=== PATIENT | female | born 1990 | race Caucasian/White ===

== ENCOUNTER 2017-07-23 11:56 | Outpatient (CLI) | payer MEDICAID ==
[~2017-07-23] VITALS: Ht 157.5 cm; Wt 92.7 kg
[~2017-07-23 11:56] MED LIST: ACET325T33 PO; AMOX500C2 PO; ERYTOPOI BOTH EYES; PREN-29 PO
[2017-07-23 12:31] VITALS: BP 99/57; PULSE 83; RESP 18; Ht 157.5 cm; Wt 92.7 kg
[2017-07-23] MEDS ORDERED: FOLI-49 PO (12:34)
--- NOTE | 2017-07-23 13:12 | RADRPT ---
PROCEDURE: US OB biophysical profile. CLINICAL INDICATION: evaluation, labor TECHNIQUE: Multiple sonographic images of the pelvis were obtained. The images were reviewed on a PACS workstation. COMPARISON: No prior studies are available for comparison. FINDINGS: There is a single viable intrauterine gestation. Cardiac activity is present with 126 beats per min brianne. There is a vertex presentation. The placenta is fundal and left lateral in location. There is no evidence of placental abruption. There is a normal amount of amniotic fluid with an JOSÉ = 10.2 cm. Biophysical profile: movement 2/2 tone 2/2. breathing 2/2 JOSÉ 2/2 Total 05/26 RPTAT: AA . IMPRESSION: Normal biophysical profile. Physician Eyal Date Time Electronically viewed and signed by Physician Eyal on 07/23/2017 13:12 /
[2017-07-23 13:15] LABS: ADD UMIC YES; UR ASCORBIC ACID NEGATIVE (NEGATIVE); UR BACTERIA FEW /HPF (NONE SEEN); UR BILIRUBIN (Dip) NEGATIVE (NEGATIVE); UR BLOOD (Dip) NEGATIVE (NEGATIVE); UR CLARITY CLOUDY (CLEAR); UR COLOR AMBER (YELLOW); UR GLUCOSE (Dip) NEGATIVE (NEGATIVE); UR KETONES (Dip) NEGATIVE (NEGATIVE); UR LEUKOCYTE ESTERASE (Dip) 2+ Leu/ul (NEGATIVE); UR MUCUS MODERATE /HPF (NONE SEEN); UR NITRITE (Dip) NEGATIVE (NEGATIVE); UR RBC 3 /HPF (0-5); UR SQUAMOUS EPITHELIAL CELL MANY /HPF (FEW); UR TOTAL PROTEIN (Dip) 1+ mg/dl (NEGATIVE); UR UROBILINOGEN (Dip) 2+ mg/dL (NEGATIVE)
--- NOTE | 2017-07-23 14:27 | TRIAGE ---
OB Triage Datetime Report Generated by CPN: 07/23/2017 14:27 Datetime: 07/23/2017 13:32 Stage of : OB Triage Datetime: 07/23/2017 13:31 Vaginal Exam Dilatation (cms): 0.0 Effacement (%): 50 Station: -3 Exam By: BJACOBO Datetime: 07/23/2017 13:30 Labor Evaluation Frequency: 0.5-2 Monitor Mode: External Duration (sec)2399: 60-70 Quality: Mild Pattern: Normal: <= 5 Contractions in 10 Minutes Resting Tone [place]: Relaxed Heart Rate FHR Baseline Rate: 130 Monitor Mode: External US FHR Baseline Changes: No Baseline Change Variability: Moderate 6-25 bpm Accelerations: 15X15 Decelerations: Variable Pain Assessment Pain Scale: 3 Pain Presence: Intermittent Pain Type: Contraction Pain Location: Abdomen Datetime: 07/23/2017 12:39 Assessment Type: Triage Maternal Assessment Level of Consciousness: Fully Conscious DTR's/Clonus: DTRs 2+; No Clonus Headache: Denies Blurred Vision: No Respiratory Effort: Unlabored; Regular Rhythm; Equal Expansion Breath Sounds, Left: Clear and Equal Breath Sounds, Right: Clear and Equal Nausea/Vomiting: Denies RUQ Epigastric Pain: Denies Lower Extremities Edema: None Upper Extremities Edema: None Facial Edema: None Fall Risk Assessment History of Falling: (0) No Secondary Diagnosis: (0) No Ambulatory Aid: (0) Bedrest/Nurse Assist IV Therapy: (0) No Gait: (0) Normal/Bedrest/Immobile Mental Status: (0) Oriented to Own Ability Fall Score: 0 Fall Risk Score Definition: No Risk: No action required Datetime: 07/23/2017 12:33 Labor Evaluation Frequency: 0.5-2 Monitor Mode: External Duration (sec)2399: 60-70 Quality: Mild Pattern: Normal: <= 5 Contractions in 10 Minutes Resting Tone [place]: Relaxed Heart Rate FHR Baseline Rate: 130 Monitor Mode: External US FHR Baseline Changes: No Baseline Change Variability: Moderate 6-25 bpm Accelerations: 15X15 Decelerations: None Pain Assessment Pain Scale: 3 Pain Presence: Intermittent Pain Type: Contraction Pain Location: Abdomen Datetime: 07/23/2017 12:29 EGA: 34.3 Datetime: 07/23/2017 12:00 Time of Arrival: 07/22/2017 11:51 Arrived By: Ambulatory Arrived From: Dr. Conroy Movement: Present Contractions: Irregular Time Contractions Began: 07/22/2017 08:00 Contractions: 1-2 Rupture of Membranes: Denies Vaginal Bleeding: None Vaginal Discharge: Present Recent Sexual Intercouse: Denies Abdominal Trauma: Not Applicable Patient Complaints: Contractions Additional Patient Complaints: UCS SINCE YESTERDAY Time Provider Notified: 07/23/2017 13:30 Provider Notified: FLORECITA Initial Plan: EFM, MONITOR UC
--- NOTE | 2017-07-23 14:31 | CONS ---
Date/Time of Note Date/Time of Note DATE: 07/23/17 TIME: 14:14 Consultation Date/Type/Reason Admit Date/Time July 23, 2017 OB triage consult This patient is a 26 years old 3 para 1 1 with estimated date of confinement of 08/30/2017 which makes her 34 weeks and 4 days today. She came to triage complaining of uterine contractions since yesterday In reviewing her past history she had a cholestasis of with her first . On examination ;she is a well-developed well-nourished lady in her late . Her vital signs are basically norm, with blood pressure of 99/57, pulse rate of 83, respiration of 20, and temperature of 98.4. Her abdomen is soft ,she does have very rare contraction. heart tone is normal with fairly good variability occasional acceleration no decelerations. On pelvic examination the cervix was closed thick with intact membranes. Reason for Consultation Laboratory Tests Test 07/23/17 11:45 Urine Color SHARMAINE Urine Clarity CLOUDY Urine pH 5.0 Urine Specific [place] 1.030 Urine Ketones NEGATIVEmg/dL Urine Nitrite NEGATIVEmg/dL Urine Bilirubin NEGATIVEmg/dL Urine Urobilinogen 2+mg/dL Urine Leukocyte Esterase 2+Norma/ul Urine Microscopic RBC 3/HPF Urine Microscopic WBC 25/HPF Urine Squamous Epithelial Cells MANY/HPF Urine Bacteria FEW/HPF Urine Mucus MODERATE/HPF Urine Hemoglobin NEGATIVEmg/dL Urine Glucose NEGATIVEmg/dL Urine Total Protein 1+mg/dl Constitutional: No chills, No diaphoresis, No disoriented, No febrile, No improved, No no complaints, No other, No poor po, No requiring IVF, No requiring O2 Eyes: No discharge, No no complaints, No other, No pain, No redness, No visual change ENT: No bleeding, No congestion, No discharge, No dysphagia, No no complaints, No other, No pain, No sore throat Respiratory: No cough, No no complaints, No other, No pain, No pleuritic pain, No shortness of breath, No sputum, No wheezing Cardiovascular: No chest pain, No edema, No lightheadedness, No no complaints, No orthopenea, No other, No palpitations, No paroxysmal nocturnal dyspnea Gastrointestinal: No blood, No constipation, No decreased appetite, No diarrhea , No flatus, No nausea, No no complaints, No other, No pain, No passing stool, No vomiting Genitourinary: other (As I mentioned on pelvic examination the cervix was closed and long and hollowing with intact membranes), No bleeding, No discharge, No dysuria, No flank pain, No hematuria, No no complaints Musculoskeletal: No back pain, No bone/joint pain, No neck pain, No no complaints, No other, No restricted range of motion, No swelling Skin: No bruising, No erythema, No laceration, No no complaints, No other, No pruritis, No rash, No skin lesions Neurologic: No confusion, No dizziness, No focal-weakness, No headache, No no complaints, No other, No seizure, No syncope Endocrine: No dry skin, No no complaints, No other, No polydypsia, No polyuria , No temp intolerance Additional Comments On ultrasound study report was; a single viable intrauterine gestation with cardiac activity of 126 bpm, in vertex presentation, placenta was fundal amniotic fluid index was reported 10.2 cm and her biophysical profile was 8/8 We ordered a urinalysis result was 1+ protein 2+ urobilinogen and leukoesterase 25 WBC , Impression: With these finding patient was placed on Macrobid 100 mg twice daily ,urine sent for culture and sensitivity 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 . Social History Smoking Status: Never smoker Exam/Review of Systems Vital Signs Vitals Vital Signs Date Time Temp Pulse Resp B/P Pulse Ox O2 Delivery O2 Flow Rate FiO2 07/23/17 12:31 98.4 83 18 99/57 Room Air Results Results 24 hrs Laboratory Tests Test 07/23/17 11:45 Urine Color SHARMAINE Urine Clarity CLOUDY A Urine pH 5.0 Urine Specific [place] 1.030 Urine Ketones NEGATIVE Urine Nitrite NEGATIVE Urine Bilirubin NEGATIVE Urine Urobilinogen 2+ H Urine Leukocyte Esterase 2+ H Urine Microscopic RBC 3 Urine Microscopic WBC 25 H Urine Squamous Epithelial Cells MANY A Urine Bacteria FEW A Urine Mucus MODERATE Urine Hemoglobin NEGATIVE Urine Glucose NEGATIVE Urine Total Protein 1+ H ROXI PINEDO MD Jul 23, 2017 14:27
== END 2017-07-23 14:23 | disposition home or self-care (01) ==
LOC: L-D 11:56 → OBT 11:56
PROVIDERS: ATTEND Obstetrics & Gynecology
DX: O62.9 Abnormality of forces of labor, unspecified (principal); Z3A.34 34 weeks gestation of pregnancy
CPT/HCPCS: 76818; 81001; 87086; Z7500; G0463